=== PATIENT | male | born 1975 | race Caucasian/White ===

== ENCOUNTER 2021-12-19 20:27 | Emergency (ER) | payer BC, OTHER ==
[2021-12-19] MEDS ORDERED: morphine CARPU-JECT 4 MG/1 ML DISP.SYRIN IVPUSH ONE (20:35)
[2021-12-19] MEDS ORDERED: SODIUM CHLORIDE 1,000 ML IV ONE (20:35)
[2021-12-19] MEDS ORDERED: ONDANSETRON 4 MG/2 ML VIAL IVPB ONE (20:35)
[2021-12-19] MEDS ORDERED: morphine SULFATE 4 MG/ML VIAL ONE (20:37)
[2021-12-19] MEDS ORDERED: ONDANSETRON 4 MG/2 ML VIAL ONE (20:37)
[2021-12-19 20:53] VITALS: TEMP 98.4; BMI 27.8
[2021-12-19] MEDS ORDERED: HYDROmorphone HCL CARPU-JECT 1 MG/1 ML DISP.SYRIN IVPUSH ONE (21:04)
[2021-12-19] MEDS ORDERED: HYDROmorphone HCL/PF 1 MG/ML VIAL ONE (21:04)
[2021-12-19] MEDS ORDERED: ACETAMINOPHEN INJECTION 100 ML IVPB ONE (21:11)
[2021-12-19] MEDS ORDERED: ACETAMINOPHEN 1000 MG/100 ML BAG IVPB ONE (21:16)
[2021-12-19 21:18] LABS: ALBUMIN 4.5 g/dl (3.4-5.0); BILIRUBIN,TOTAL 0.9 mg/dl (0.2-1); CALCIUM 10.2 mg/dl (8.5-10); CREATININE 1.3 mg/dl (0.55-1.3); TOT PROT 8.1 g/dl (6.4-8.2)
[2021-12-19 21:46] VITALS: BP 129/76; PULSE 82
[2021-12-19 21:58] LABS: BASO % 0.2 % (0-2.0); EOS % 1.1 % (0-4.5); HEMOGLOBIN 16.1 GM/dL (11.7-16.9); LYMPH % 19.8 % (8-40); MCH 30.9 pg (25.7-33.7); MCHC 33.6 g/dl (32.0-35.9); MEAN CELL VOLUME 92.1 fl (80-96); MEAN PLT VOLUME 8.6 fl (7.5-11.1); MONO % 8.4 % (3.8-10.2); NEUT % 70.5 % (42.8-82.8); PLATELET COUNT 185 10^3/uL (134-434); RBC 5.22 M/mm3 (4.00-5.60); RDW 13.8 % (11.9-15.9); WHITE BLOOD COUNT 8.5 K/mm3 (4.0-10.0)
== END 2021-12-19 22:19 | disposition home or self-care (01) ==
LOC: FER 20:27
PROC: 3E0333Z Introduction of Anti-inflammatory into Peripheral Vein, Percutaneous Approach (ICD-10-PCS; principal; 2021-12-19)
PROC: 3E033NZ Introduction of Analgesics, Hypnotics, Sedatives into Peripheral Vein, Percutaneous Approach (ICD-10-PCS; 2021-12-19)
PROC: 3E033NZ Introduction of Analgesics, Hypnotics, Sedatives into Peripheral Vein, Percutaneous Approach (ICD-10-PCS; 2021-12-19)
PROC: 3E033GC Introduction of Other Therapeutic Substance into Peripheral Vein, Percutaneous Approach (ICD-10-PCS; 2021-12-19)
PROC: 3E0337Z Introduction of Electrolytic and Water Balance Substance into Peripheral Vein, Percutaneous Approach (ICD-10-PCS; 2021-12-19)
DX: N39.0 Urinary tract infection, site not specified (principal)
CPT/HCPCS: 36415; 74176-TC; 80053; 81003; 81015; 85025; 99284-25; J0131

== ENCOUNTER 2024-02-02 15:36 | Emergency (ER) | payer BC ==
[2024-02-02 16:51] VITALS: BP 112/78; PULSE 72; RESP 18; TEMP 97.9; BMI 29.5
[2024-02-02 17:29] LABS: HEMATOCRIT 48.7 % (35.4-49); HEMOGLOBIN 16.5 G/dL (11.7-16.9); MCH 31.7 pg (25.7-33.7); MCHC 33.9 g/dl (32.0-35.9); MEAN CELL VOLUME 93.6 fl (80-96); MEAN PLT VOLUME 8.8 fl (7.5-11.1); PLATELET COUNT 148.1 10^3/uL (134-434); RDW 13.6 % (11.9-15.9); WHITE BLOOD COUNT 4.5 10^3/uL (4.0-10.8)
[2024-02-02 17:40] LABS: ALBUMIN 4.4 g/dl (3.4-5.0); ALK PHOS 107 U/L (45-117); ANION GAP 7 mmol/L (4-13); BILIRUBIN,TOTAL 0.8 mg/dl (0.2-1); CALCIUM 9.7 mg/dl (8.5-10.1); CHLORIDE 104 mmol/L (98-107); CO2 26 mmol/L (21-32); CREATININE 1.2 mg/dl (0.6-1.3); GLUCOSE,RANDOM 97 mg/dl (74-106); POTASSIUM 4.1 mmol/L (3.5-5.1); SGOT/AST 20 U/L (15-37); SGPT/ALT 28 U/L (7-52); SODIUM 137 mmol/L (136-145); TOT PROT 7.2 g/dl (6.4-8.2)
[2024-02-02 18:42] LABS: N-TERMINAL BNP 10.2 pg/ml (5-125)
== END 2024-02-02 19:20 | disposition home or self-care (01) ==
LOC: FER 15:36
DX: R06.02 Shortness of breath (principal); R07.89 Other chest pain; Z20.822 Contact with and (suspected) exposure to COVID-19
CPT/HCPCS: 0241U-QW; 36415; 71045-TC-FY; 80053; 83880; 84484; 85027; 93005; 99285-25

== ENCOUNTER 2025-07-28 15:06 | Emergency (ER) | payer BC ==
[2025-07-28 15:23] VITALS: RESP 18; BMI 29.1
[2025-07-28] MEDS: ONDANSETRON 4 MG/2 ML VIAL IVPUSH ONE (15:42)
[2025-07-28] MEDS ORDERED: KETOROLAC TROMETHAMINE 30 MG/1 ML VIAL ONE (15:43)
[2025-07-28] MEDS ORDERED: ONDANSETRON 4 MG/2 ML VIAL ONE (15:43)
[2025-07-28] MEDS: KETOROLAC TROMETHAMINE 30 MG/1 ML VIAL IVPUSH ONE (15:48)
[2025-07-28 17:25] LABS: ABSOLUTE IMMATURE GRANULOCYTES 0.04 x10^3/uL (0.0-0.031); BASOPHILS # 0.01 x10^3/uL (0.01-0.08); EOSINOPHIL % 0.1 % (0.8-7.0); EOSINOPHILS # 0.01 x10^3/uL (0.04-0.54); MCHC 33.5 g/dl (32.3-36.5); MEAN CELL VOLUME 92.8 fl (79.0-92.2); MEAN PLT VOLUME 11.0 fl (9.4-12.4); MONOCYTE # 0.67 x10^3/uL (0.30-0.82); MONOCYTE % 5.7 % (5.3-12.2); RDW 12.2 % (12.2-16.1)
[2025-07-28 17:43] LABS: EPITHELIAL CELLS 0-5 /hpf
[2025-07-28 18:28] LABS: ALK PHOS 109 U/L (45-117); CO2 25 mmol/L (21-32); CREATININE 1.5 mg/dl (0.6-1.3); GLUCOSE,RANDOM 101 mg/dl (74-106); SGOT/AST 18 U/L (15-37); SGPT/ALT 24 U/L (7-52); TOT PROT 8.4 g/dl (6.4-8.2)
[2025-07-28 18:56] VITALS: BP 130/66; PULSE 74; TEMP 98.8
[2025-07-28] MEDS ORDERED: TAMSULOSIN HCL 0.4 MG CAP ONE (19:16)
[2025-07-28] MEDS ORDERED: ACETAMINOPHEN 325 MG TABLET (FP) ONE (19:16)
[2025-07-28] MEDS: TAMSULOSIN HCL 0.4 MG CAP PO ONE (19:17)
[2025-07-28] MEDS: ACETAMINOPHEN 500 MG TABLET (FP) PO ONE (19:17)
[2025-07-28 21:53] LABS: HCV DIAGNOSTIC IN-HOUSE W/RFLX NON-REACTIVE (NONREACTIVE)
[2025-07-28 23:31] LABS: HIV INTERPRETATION NEGATIVE (NEGATIVE)
== END 2025-07-28 19:22 | disposition home or self-care (01) ==
LOC: FER 15:06
PROC: 3E0333Z Introduction of Anti-inflammatory into Peripheral Vein, Percutaneous Approach (ICD-10-PCS; principal; 2025-07-28)
PROC: 3E033GC Introduction of Other Therapeutic Substance into Peripheral Vein, Percutaneous Approach (ICD-10-PCS; 2025-07-28)
DX: N13.2 Hydronephrosis with renal and ureteral calculous obstruction (principal); R10.9 Unspecified abdominal pain; R11.2 Nausea with vomiting, unspecified; M54.9 Dorsalgia, unspecified
CPT/HCPCS: 36415; 74177-TC; 76775-TC; 80053; 81003; 81015; 83690; 85025; 86803; 87086; 87389; 99285-25; Q9967